=== PATIENT | male | born 1980 | race Two or more races ===

== ENCOUNTER 2025-01-21 00:36 | Emergency (ER) | payer OTHER ==
[~2025-01-21] VITALS: Ht 170.2 cm; Wt 111.0 kg
--- NOTE | 2025-01-21 00:59 | ED.PDOC ---
Eye-HPI HPI Comments 44 y/o obese M presents with c/c of left sided sore throat for 1x week. No endorsement of any fever, chills, cough, congestion, throat swelling, or further acute symptoms. Chief Complaint: Sore Throat Time Seen by MD: 00:50 Reviewed Notes: Nurses Notes, Medications, Allergies Allergies: Coded Allergies: NO KNOWN ALLERGIES (Unverified , 01/21/25) Information Source: Patient Mode of Arrival: Ambulatory Timing: Weeks Duration: Since onset Prehospital treatment: None Quality: Pain Past Medical History PAST MEDICAL HISTORY: Denies Surgical History: Denies all surgeries Family History Family History: Unknown Social History Smoker: Cigarettes Alcohol: Denies ETOH Use Drugs: Denies Drug Use Lives In: Home All Other Systems: Reviewed and Negative (Comprehensive review of systems are negative unless stated in HPI) Physical Exam General Appearance: No Apparent Distress, Normal HEENT: Pharyngeal Erythema, TMs Normal, Other (Moderate to severe left posterior palate and tonsillar swelling with left facial swelling with difficulty in open his mouth fully positive trismus) Neck: Limited Range of Motion, Tender Lateral (left side) Respiratory: Chest Non-Tender, Lungs Clear, No Accessory Muscle Use, No Respiratory Distress, Normal Breath Sounds Cardiovascular: No Edema, No JVD, No Murmur, No Gallop, Normal Peripheral Pulses, Regular Rate/Rhythm Breast Exam: Deferred Gastrointestinal: No Organomegaly, Non Tender, No Pulsatile Mass, Normal Bowel Sounds, Soft Genitalia: Deferred Pelvic: Deferred Rectal: Deferred Extremities: No calf tenderness, Normal capillary refill, Normal inspection, Normal range of motion, Non-tender, No pedal edema Musculoskeletal : Apperance: Normal 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 Was a procedure done?: No EENT DIFF Eye: N/A Ear: N/A Nose: N/A Mouth: N/A Sore Throat: Epiglottitis, Mononeucleosis, Peritonsillar Abscess, Peritonsillar Cellulitis, Pharyngitis, Diptheria, Streptococcal, Viral Pharyngitis, URI X-Ray, Labs, Meds, VS Vital Signs Date Time Temp Pulse Resp B/P (MAP) Pulse Ox O2 Delivery O2 Flow Rate FiO2 01/21/25 00:37 100.0 114 16 139/85 96 100.0 Lab Test 01/21/25 01:28 Range/Units White Blood Count 17.6 H 4.4-10.8 10^3/uL Red Blood Count 5.35 4.5-5.90 10^6/uL Hemoglobin 16.4 13.5-17.5 g/dL Hematocrit 48.3 41.0-53.0 % Mean Corpuscular Volume 90.2 80.0-100.0 fL Mean Corpuscular Hemoglobin 30.7 28.0-32.0 pg Mean Corpuscular Hemoglobin Concent 34.0 32.0-36.0 g/dL Red Cell Distribution Width 13.3 11.8-14.3 % Platelet Count 188 140-450 10^3/uL Mean Platelet Volume 10.6 6.9-10.8 fL Neutrophils (%) (Auto) 80.3 H 37.0-80.0 % Lymphocytes (%) (Auto) 8.4 L 10.0-50.0 % Monocytes (%) (Auto) 10.9 0.0-12.0 % Eosinophils (%) (Auto) 0.1 0.0-7.0 % Basophils (%) (Auto) 0.3 0.0-2.0 % Neutrophils # (Auto) 14.1 H 1.6-8.6 10 ^3/uL Lymphocytes # (Auto) 1.5 0.4-5.4 10 ^3/uL Monocytes # (Auto) 1.9 H 0-1.3 10 ^3/uL Eosinophils # (Auto) 0 0-0.8 10 ^3/uL Basophils # (Auto) 0.1 0-0.2 10 ^3/uL Nucleated Red Blood Cells 0.1 % Sodium Level 139 136-145 mmol/L Potassium Level 3.5 3.5-5.1 mmol/L Chloride Level 103 98-107 mmol/L Carbon Dioxide Level 27 20-31 mmol/L Anion Gap 9 5-15 Blood Urea Nitrogen 10 9-23 mg/dL Creatinine 0.96 0.700-1.30 mg/dL Glomerular Filtration Rate Calc 100 >90 mL/min BUN/Creatinine Ratio 10.4 10.0-20.0 Serum Glucose 132 H 74-106 mg/dL Lactic Acid Level 1.5 0.4-2.0 mmol/L Calcium Level 9.0 8.7-10.4 mg/dL Total Bilirubin 0.5 0.2-1.0 mg/dL Aspartate Amino Transferase (AST) 25 13-40 U/L Alanine Aminotransferase (ALT) 37 7-40 U/L Alkaline Phosphatase 126 H 46-116 U/L Total Protein 8.2 5.7-8.2 g/dL Albumin 4.5 3.2-4.8 g/dL Current Medications Medications (Trade) Dose Ordered Sig/Katie Route Start Time Stop Time Status Last Admin Clindamycin Phosphate 50 ml @ 50 mls/hr ONCE ONCE IV 01/21/25 01:30 01/21/25 02:29 DC 01/21/25 03:09 Ketorolac Tromethamine (Toradol Injection) 30 mg ONCE ONCE IV 01/21/25 01:30 01/21/25 01:31 DC 01/21/25 03:09 Dexamethasone Sodium Phosphate (Decadron Injection) 10 mg ONCE ONCE IV 01/21/25 01:30 01/21/25 01:31 DC 01/21/25 03:09 Acetaminophen (Tylenol Tablet Or Capsule) 1,000 mg ONCE ONCE PO 01/21/25 01:30 01/21/25 01:31 DC 01/21/25 03:09 Sodium Chloride 1,000 ml @ 1,000 mls/hr Q1H ONCE IV 01/21/25 01:30 01/21/25 02:29 DC 01/21/25 03:09 X-Ray, Labs, Meds, VS Comment CT of the neck without intravenous contrast. RADIATION DOSE: CTDIvol: 23.97 mGy, DLP: 796.73 mGy*cm FINDINGS: Assessment limited without contrast Heterogeneous hypodense mass centered within the left palatine tonsil measuring 4.2 x 3.6 cm. Significant mass effect on the oropharyngeal area which remains Multiple enlarged lymph nodes along both cervical chains, right larger than left. No additional discrete lesion. No significant soft tissue abnormality is seen. IMPRESSION: Large hypodense mass or mass like collection centered in the left [place] tonsil. The differential includes an area focal fragments change versus true neoplasm. Please correlate clinically consider short term contrast enhanced CT follow-up WBC [id number] Lactic acid negative Likely peritonsillar abscess based on clinical presentation exam and CT findings. Patient will need higher level of care specialty ENT for drainage. Patient accepted at [facility] ER to ER Dr. Garcia. Unasyn was recommended for the antibiotic however pharmacy is closed and unable to obtain Unasyn at this time so patient is started on clindamycin 900 mg IV piggyback. Patient was also given Decadron 10 mg IV push, Tylenol 1 g p.o., and Toradol 30 mg mg IV push. He does report improvement in pain. Patient is currently stable for BLS transfer via ground. Time of 1ST Reevaluation: 01:20 Reevaluation 1ST: Unchanged Time of 2ND Reevaluation: 02:36 Reevaluation 2ND: Unchanged Patient Education/Counseling: Treatment, Need For Follow Up Family Education/Counseling: No Family Present SEPSIS Sepsis Screen Date sepsis recognized/suspect: Jan 21, 2025 Time Sepsis recognized/suspect: 36 Recent Procedure: No On Antibiotic Therapy: No Respiratory Rate >20: No Heart Rate >90: Yes Temp<36 C (96.8 F) or >38.3 C: No SBP <90 or MAP <65 mmHG: No New Acute Mental Status Change: No Is the patient on CPAP, BIPAP,: No Physician Orders Neck Without Contrast (01/21/25 01:16) Blood Culture (01/21/25 01:20) Imaging Transfer Request (01/21/25 03:13) Vital Signs Date Time Temp Pulse Resp B/P (MAP) Pulse Ox O2 Delivery O2 Flow Rate FiO2 01/21/25 00:37 100.0 114 16 139/85 96 100.0 Laboratory Tests Test 01/21/25 01:28 Lactic Acid Level 1.5 mmol/L (0.4-2.0) White Blood Count 17.6 10^3/uL (4.4-10.8) H Medications Medications Dose Ordered Sig/Katie Route Start Time Stop Time Status Last Admin Dose Admin Acetaminophen 1,000 mg ONCE ONCE PO 01/21/25 01:30 01/21/25 01:31 DC 01/21/25 03:09 Clindamycin Phosphate 50 ml @ 50 mls/hr ONCE ONCE IV 01/21/25 01:30 01/21/25 02:29 DC 01/21/25 03:09 Dexamethasone Sodium Phosphate 10 mg ONCE ONCE IV 01/21/25 01:30 01/21/25 01:31 DC 01/21/25 03:09 Ketorolac Tromethamine 30 mg ONCE ONCE IV 01/21/25 01:30 01/21/25 01:31 DC 01/21/25 03:09 Sodium Chloride 1,000 ml @ 1,000 mls/hr Q1H ONCE IV 01/21/25 01:30 01/21/25 02:29 DC 01/21/25 03:09 Departure 1 Departure Time of Disposition: 02:35 Impression: Primary Impression: Peritonsillar abscess Additional Impression: Leukocytosis Qualified Codes: D72.829 - Elevated white blood cell count, unspecified Disposition: 04 INTERMEDIATE CARE FACILITY Condition: Stable Discharged With: Self Critical Care Note Critical Care Time?: No Stability Stability form required: No Heart Score Heart Score: Heart Score Response (Comments) Value History N/A 0 EKG N/A 0 Age N/A 0 Risk Factors N/A 0 Troponin N/A 0 Total 0 I personally scribed for ER ([email or web address]) on 01/21/25 at 00:59. Electronically submitted by Cornelio Sandy ([email or web address]). ER Jan 21, 2025 00:59 AYAN MCKINNEY CAP CUTTER Jan 21, 2025 01:13
--- NOTE | 2025-01-21 01:49 | DVH ---
EXAM: CT NECK WITHOUT CONTRAST INDICATION: left side throat swelling Exam Date: 01/21/2025 01:18 AM COMPARISON: None TECHNIQUE: CT of the neck without intravenous contrast. RADIATION DOSE: CTDIvol: 23.97 mGy, DLP: 796.73 mGy*cm FINDINGS: Assessment limited without contrast Heterogeneous hypodense mass centered within the left palatine tonsil measuring 4.2 x 3.6 cm. Signifi cant mass effect on the oropharyngeal area which remains Multiple enlarged lymph nodes along both cervical chains, right larger than left. No additional discrete lesion. No significant soft tissue abnormality is seen. IMPRESSION: Large hypodense mass or mass like collection centered in the left [place] tonsil. The differential i ncludes an area focal fragments change versus true neoplasm. Please correlate clinically consider kavitha rt term contrast enhanced CT follow-up.
[2025-01-21 02:14] LABS: Hematocrit 48.3 % (41.0-53.0); Hemoglobin 16.4 g/dL (13.5-17.5); Mean Corpuscular Hemoglobin 30.7 pg (28.0-32.0); Mean Corpuscular Volume 90.2 fL (80.0-100.0); Nucleated Red Blood Cells % 0.1 %
[2025-01-21 02:23] LABS: Alanine Aminotransferase 37 U/L (7-40); Albumin 4.5 g/dL (3.2-4.8); Anion Gap 9 (5-15); BUN/Creatinine Ratio 10.4 (10.0-20.0); Blood Urea Nitrogen 10 mg/dL (9-23); Calcium 9.0 mg/dL (8.7-10.4); Carbon Dioxide 27 mmol/L (20-31); Chloride 103 mmol/L (98-107); Sodium 139 mmol/L (136-145); Total Protein 8.2 g/dL (5.7-8.2)
[2025-01-21 02:24] LABS: Bilirubin, Total 0.5 mg/dL (0.2-1.0)
[2025-01-21 02:26] LABS: Alkaline Phosphatase 126 U/L (46-116); Glucose 132 mg/dL (74-106); Potassium 3.5 mmol/L (3.5-5.1)
[2025-01-21] MEDS: KETOROLAC TROMETH 30 MG/ML 1ML VIAL IV ONE (03:09)
[2025-01-21] MEDS: SODIUM CHLORIDE 0.9% 1,000 ML IV ONE (03:09)
[2025-01-21] MEDS: CLINDAMYCIN 900MG IV 50 ML IV ONE (03:09)
[2025-01-21] MEDS: ACETAMINOPHEN 500 MG TAB or CAP PO ONE (03:09)
[2025-01-21 04:06] VITALS: BP 123/77; TEMP 99.6
[2025-01-21 04:12] VITALS: PULSE 104; RESP 18; O2SAT 96
== END 2025-01-21 04:57 | disposition home or self-care (01) ==
LOC: ER 00:36
DX: J36 Peritonsillar abscess (principal); D72.829 Elevated white blood cell count, unspecified; F17.210 Nicotine dependence, cigarettes, uncomplicated
CPT/HCPCS: 36415; 70490; 80053; 83605; 85025; 87040; 96365; 96375; 99285; J1100; J1885; J3490; J7030